=== PATIENT | female | born 1975 ===

== ENCOUNTER 2016-12-02 09:59 | Inpatient (IN) | payer BC ==
[2016-12-02] VITALS (14 sets, daily range): BP systolic 110–137; BP diastolic 69–80
[~2016-12-02] VITALS: Ht 167.6 cm; Wt 72.6 kg
[~2016-12-02 09:59] MED LIST: AMBIEN10 M1 ORAL; DIVALPROEX SOD250 M1 PO; LEXAPRO20 MG ORAL; NORCO 10-325 T1 EACH ORAL
[2016-12-02] MEDS ORDERED: LR 1000ml 1,000 ML IVLG SCH (12:12)
[2016-12-02] MEDS ORDERED: Atropine Inj 1mg/10ml Syr IV PRN (12:15)
[2016-12-02] MEDS ORDERED: Norco 5mg/325mg tab ORAL PRN ×3 (12:15→20:30)
[2016-12-02] MEDS ORDERED: Ketorolac 30mg Inj IV PRN (12:15)
[2016-12-02] MEDS ORDERED: Oxycodone/Acetaminophen 5-325 ORAL PRN (12:15)
[2016-12-02] MEDS ORDERED: Ketorolac 60mg Inj IV PRN (12:15)
[2016-12-02] MEDS ORDERED: Metoclopramide 10mg/2ml Inj IVP PRN (12:15)
[2016-12-02] MEDS ORDERED: DiphenhydrAMINE 50mg/ml Inj IVP PRN (12:15)
[2016-12-02] MEDS ORDERED: Norco 7.5mg/325mg tab ORAL PRN ×3 (12:15→20:30)
[2016-12-02] MEDS ORDERED: Hydromorphone 0.5mg/0.5ml inj IVP PRN ×2 (12:15→20:45)
[2016-12-02] MEDS ORDERED: fentaNYL 100 mcg/2 mL IV PRN ×2 (12:15→18:15)
[2016-12-02] MEDS ORDERED: LORazepam Inj 2mg/ml 1ml IV PRN (12:15)
--- NOTE | 2016-12-02 12:18 | Anethesia Preoperative Eval ---
Anesthesia Pre-op PMH/ROS General Date of Evaluation: Dec 02, 2016 Time of Evaluation: 12:56 Anesthesiologist: Justina ASA Score: ASA 2 Mallampati Score Class I : Soft palate, uvula, fauces, pillars visible Class II: Soft palate, uvula, fauces visible Class III: Soft palate, base of uvula visible Class IV: Only hard plate visible Mallampati Classification: Class II Surgeon: Gracy Diagnosis: Neck Pain Surgical Procedure: ACDF C5-6, C6-7 Anesthesia History: none Family History: no anesthesia problems Allergies: Coded Allergies: No Known Allergies (Unverified , 12/01/16) Medications: see eMAR Past Medical History Neurologic/Psychiatric: Reports: other - Migranes Musculoskeletal/Integumentary: Reports: RA PSxH Narrative: NEREYDAElvia Knee SX Anesthesia Pre-op Phys. Exam Physician Exam Last Vital Signs Date Time Temp Pulse Resp B/P Pulse Ox O2 Delivery O2 Flow Rate FiO2 12/02/16 11:07 97.7 78 18 115/74 99 Room Air Constitutional: NAD Neurologic: CN 2-12 intact Cardiovascular: RRR Respiratory: CTA Gastrointestinal: S/NT/ND Airway Exam Mallampati Score: Class II MO: full ROM: limited Teeth: intact Anesthesia Pre-op A/P Risk Assessment & Plan Assessment: ASA 2 Plan: GA, BIS, Glidescope Status Change Before Surgery: No Pre-Antibiotics Dru Grams Ancef IV Given Within 1 Hr of Incision: Yes Time Given: 13:46 Stephan Horn MD Dec 02, 2016 12:18
--- NOTE | 2016-12-02 12:19 | Immediate Post-Op Evaluation ---
Immediate Post-Op Evalulation Immediate Post-Op Evalulation Procedure: ACDF C5-6 Date of Evaluation: Dec 02, 2016 Time of Evaluation: 17:24 IV Fluids: 1000 LR Blood Products: 0 Estimated Blood Loss: 50 Urinary Output: 150 Blood Pressure Systolic: 127 Blood Pressure Diastolic: 79 Pulse Rate: 92 Respiratory Rate: 16 O2 Sat by Pulse Oximetry: 100 Temperature (Fahrenheit): 98.4 Pain Score (1-10): 3 Nausea: No Vomiting: No Complications Stable Patient Status: awake, reacts, patent, extubated, none Hydration Status: adequate Dru Grams Ancef IV Given Within 1 Hr of Incision: Yes Stephan Horn MD Dec 02, 2016 12:19
--- NOTE | 2016-12-02 12:19 | 48 Hour Post Anesthesia Eval ---
Post Anesthesia Evaluation Procedure: ACDF C5-6 Date of Evaluation: Dec 02, 2016 Time of Evaluation: 19:36 Blood Pressure Systolic: 131 0: 78 Pulse Rate: 87 Respiratory Rate: 18 Temperature (Fahrenheit): 98.6 O2 Sat by Pulse Oximetry: 100 Airway: patent Nausea: No Vomiting: No Pain Intensity: 2 Hydration Status: adequate Cardiopulmonary Status: Stable Mental Status/LOC: patient returned to baseline Follow-up Care/Observations: 0 Post-Anesthesia Complications: 0 Follow-up care needed: N/A Stephan Horn MD Dec 02, 2016 12:19
[2016-12-02] MEDS ORDERED: Surgicel 4in x 8in TOPIC ONE (12:23)
[2016-12-02] MEDS ORDERED: Thrombin 5000 units TOPIC ONE (12:23)
[2016-12-02] MEDS ORDERED: Bupivacaine w/Epi 0.5% 30ml Vial INJ ONE (12:23)
[2016-12-02] MEDS ORDERED: Bacitracin 50000 Units Vial ONE (12:24)
[2016-12-02] MEDS ORDERED: Thrombin 5000 units spray kit TOPIC ONE (12:24)
--- NOTE | 2016-12-02 12:45 | Pre-Procedure Note/Attestation ---
Pre-Procedure Note/Attestation Complete Prior to Procedure Planned Procedure: not applicable Procedure Narrative: C5-6 and possible C6-7 ACDF Indications for Procedure Pre-Operative Diagnosis: Disc hernia and neck pain. Please see H+P Attestation I attest that I discussed the nature of the procedure; its benefits; risks and complications; and alternatives (and the risks and benefits of such alternatives ), prior to the procedure, with the patient (or the patient's legal lifeline representatives). I attest that, if there was a reasonable possibility of needing a blood transfusion, the patient (or the patient's legal lifeline representatives) was given the [facility] standardized written summary, pursuant to the [place] Blood Safety Act ([place] Health and Safety Code # 1645, as amended). I attest that I re-evaluated the patient just prior to the surgery and that there has been no change in the patient's H&P, except as documented below: KYUNG MAR Dec 02, 2016 12:44
[2016-12-02] MEDS ORDERED: Lidocaine 1% Plain 30 ml INJ ONE (13:20)
[2016-12-02] MEDS ORDERED: fentaNYL 250mcg/5ml ONE (13:20)
[2016-12-02] MEDS ORDERED: LR 1000ml ONE (13:20)
[2016-12-02] MEDS ORDERED: Glycopyrrolate 0.2mg/ml 1ml Vial ONE (13:20)
[2016-12-02] MEDS ORDERED: Dexamethasone 4mg/ml vial ONE (13:20)
[2016-12-02] MEDS ORDERED: Sterile Water Irrig 1000ml IRRIG ONE (13:20)
[2016-12-02] MEDS ORDERED: Nimbex 2mg/ml Inj 10ML IVP ONE (13:20)
[2016-12-02] MEDS ORDERED: Propofol 10mg/ml 20ml IV ONE (13:20)
[2016-12-02] MEDS ORDERED: NS Irrig 1000ml ONE (13:20)
[2016-12-02] MEDS ORDERED: fentaNYL 100 mcg/2 mL IV ONE (13:20)
[2016-12-02] MEDS ORDERED: Neostigmine 1mg/ml 10ml Inj ONE (13:20)
[2016-12-02] MEDS ORDERED: Acetaminophen (Non formulary) 100 ML IV ONE (13:30)
--- NOTE | 2016-12-02 16:59 | Brief Operative Note ---
Immediate Post Operative Note Operative Note Chief Complaint: neck pain and radiculopathy Pre-op Diagnosis: Disc hernia and neck pain. Please see H+P Procedure: C5-6 ACDF Post-op Diagnosis: same Post-op Diagnosis: same as pre-op Findings: consistent w/pre-op dx studies Surgeon: Gracy Fly Tier: [place] Anesthesiologist: Justina Anesthesia: general Specimen: yes Complications: none Condition: stable Estimated Blood Loss: minimal Drains: none Implant(s) used?: Yes KYUNG MAR Dec 02, 2016 16:59
[2016-12-02] MEDS ORDERED: NS w/KCl 20mEq 1,000 ML IV SCH (17:14)
[2016-12-02] MEDS: Meperidine 25mg/0.5ml Inj IV PRN ×2 (17:20→17:54)
[2016-12-02] MEDS ORDERED: Docusate 100mg cap ORAL SCH ×2 (18:00→20:30)
[2016-12-02] MEDS: Hydromorphone 0.5mg/0.5ml inj IVP PRN ×2 (18:20→18:35)
[2016-12-02] MEDS: Midazolam 2mg/2ml Inj IVP PRN ×2 (18:25→18:41)
[2016-12-02] MEDS ORDERED: Norco 10mg/325mg tab ORAL PRN ×2 (20:45→22:30)
[2016-12-02] MEDS ORDERED: LORazepam 0.5mg tab ORAL PRN (20:45)
[2016-12-02] MEDS ORDERED: Zolpidem 5mg tab ORAL PRN (21:00)
[2016-12-02] MEDS: ceFAZolin sod 1 GM in D5W 55 ML IV SCH (21:17)
[2016-12-02] MEDS: NS w/KCl 20mEq 1,000 ML IV SCH (21:17)
[2016-12-02] MEDS: Depakote ER 250mg tab ORAL SCH (21:17)
[2016-12-02] MEDS ORDERED: ceFAZolin sod 1 GM in D5W 55 ML IV SCH (22:00)
[2016-12-02] MEDS ORDERED: Chloraseptic Spray 20mL Bottle ORAL PRN (22:30)
[2016-12-02] MEDS ORDERED: HYDROmorphone 1mg/ml Carpuject SUBQ PRN (22:30)
--- NOTE | 2016-12-02 23:30 | Consultation ---
DATE OF CONSULTATION: 12/02/2016 CONSULTING PHYSICIAN: Gray Navarrete M.D. REQUESTING PHYSICIAN: Aliyah Dubose M.D. REASON FOR CONSULTATION: Acute pain consult. HISTORY OF PRESENT ILLNESS: Thank you kindly for consulting me to evaluate and render an opinion as to how to proceed in the management of the patient's acute postoperative cervical spine pain, status post cervical spine fusion surgery and instrumentation. On your request, I saw the patient for acute pain consultation and the patient complained of severe pain after her neck fusion surgery today. The patient has been using [place] chronically for her chronic neck pain and stated that her pain control was inadequate after her surgery. I saw the patient at the bedside, where I performed a detailed history and physical examination. I discussed the case with yourself, Dr. Dubose along with the hospital pharmacist and the nurse to devise the following analgesic plan. PAST MEDICAL HISTORY: 1. Acute postoperative cervical spine pain, status post cervical spine fusion surgery by Dr. Aliyah Dubose in November 2016. 2. History of lumbar spine surgery. 3. Anxiety/depression. PAST SURGICAL HISTORY: 1. Previous lumbar spine fusion surgery. 2. Bilateral knee arthroscopies. 3. Hysterectomy. MEDICATIONS: Medications at home, 1. . 2. Lexapro. 3. Ambien. 4. [place] 10/325 mg one to two tablets three times a day. ALLERGIES: No known drug allergies. FAMILY HISTORY: Negative and noncontributory. SOCIAL HISTORY: The patient lives at home with her near to [place] [place] with her two adult children. REVIEW OF SYSTEMS: Per attending physician. PHYSICAL EXAMINATION: VITAL SIGNS: Age 41. Height 167 centimeters. Weight 156 pounds. Body mass index 26. Pain level 9/10 on the visual analog pain scale. Afebrile, pulse 90, respirations 18, blood pressure 117/76, and oxygen saturation 96% on supplemental oxygen. HEENT: [place] collar in place. NECK: Dressing appears clean and dry. Significant pain with any range of motion. She appears . LUNGS: She is breathing, phonating, and swallowing within normal limits. CHEST: Clear to auscultation. HEART: Regular rate and rhythm. ABDOMEN: Soft. EXTREMITIES: Moving all extremities x4. DIAGNOSTIC TESTING: A 12-lead EKG shows normal sinus rhythm. LABORATORY STUDIES: Lab on 11/22/2016 showed white count of 5, hematocrit 40, and platelets 211,000. INR is 1.1 and PT 30. Sodium is 137, potassium 4.3, chloride 102, bicarbonate 33, glucose 88, BUN 15, creatinine 0.5, calcium 9.4, and phosphorus 3.2. Total protein is 6.6 and albumin 4.2. ALT is 80, AST 19, and alkaline phosphatase 58. Total bilirubin is 0.2. . Hepatitis A and B, and C, and HIV are all negative. TSH is normal. IMPRESSION: . TREATMENT AND RECOMMENDATIONS: To help with this patient's pain control, I have devised the following analgesic plan. This patient has had previous spinal fusion surgery. She tolerated [place] 10/325 mg up to two tablets at a time up to three times per day. She has not been using muscle relaxant lately, but she has responded well to Soma. I have asked pharmacy to bolus her with 1.5 mg of subcutaneous Dilaudid now and which I will continue every three hours. Another dose of intravenous Dilaudid has been inadequate. I also would recommend titrating [place] 10/325 mg two tablets orally every four hours p.r.n. for mild pain and I have added a dose of Soma 350 mg orally every eight hours p.r.n. We will restart the patient on her mood stabilizing agent including valproic acid and Lexapro. I have also added p.r.n. dose of oral Ativan 0.5 mg q.6 h. for anxiety. The patient does have chronic insomnia. I have restarted her Ambien on a p.r.n. basis. I will start her on Protonix for gastrointestinal ulcer prophylaxis. I have ordered Mylanta 30 mL q.6 h. p.r.n. for any gastroesophageal reflux disease symptom exacerbation and for giving any itching symptoms, I have ordered Benadryl 25 mg orally q.6 h. I have also added antiemetic Zofran as a rescue antinausea agent. I have ordered Chloraseptic spray bottle at the bedside to help with topical sore throat complaints and I have left a prescription for outpatient usage for [place] and Soma, quantity of 60 and 25 respectively for outpatient usage. Gray Navarrete M.D. DR: Selma JOB#: [id number] CC:
[2016-12-03 00:50] VITALS: BP 116/78
--- NOTE | 2016-12-03 02:30 | Operative Note - Dictated ---
DATE OF OPERATION: 12/02/2016 PREOPERATIVE DIAGNOSES: 1. C5-C6 disc degeneration. 2. Neck pain. 3. T5-T6 foraminal stenosis, left greater than right. 4. Foraminotomy. POSTOPERATIVE DIAGNOSES: 1. C5-C6 disc degeneration. 2. Neck pain. 3. T5-T6 foraminal stenosis, left greater than right. 4. Foraminotomy. PROCEDURES: 1. C5-C6 decompression central. 2. C5-C6 left foraminotomy. 3. C5-C6 right foraminotomy. 4. C6 partial corpectomy. 5. C5-C6 diskectomy for purposes other than fusion. 6. C5-C6 interbody fusion. 7. C5-C6 instrumentation. 8. C5-C6 placement of PEEK cage from [employer], measures 5 x 17 x 14 mm. 9. Use of intraoperative Osteocel allograft. 10. Neurolysis of right C6. 11. Neurolysis of left C6. 12. SSEP, upper and lower extremities for two hours. 13. Motor-evoked potential for upper and lower extremities for two hours. 14. Use of intraoperative fluoroscopy for two hours. 15. Interpretation of x-ray of cervical spine x15. 16. Interpretation of MRI of the cervical spine intraoperatively. 17. Use of intraoperative microscopy. 18. Microscopic plastic closure of wound, 3 cm in length. SURGEON: Aliyah Dubose M.D. MANAGER PLAN SURGEON: Dr. Dow. ANESTHESIOLOGIST: Stephan Horn M.D. COMPLICATIONS: None. CONDITION: Transfer to recovery room under stable condition and moving all her extremities with good strength. I immediately discussed the case with the family, mainly her waiting in the waiting area. INDICATION FOR PROCEDURE: The patient is a 41-year-old female with severe neck pain that has been not responsive to conservative treatment. The pros and cons of surgery were explained to this patient after her surgery. She was also offered the discogram, which she declined and wanted to proceed with surgery and as such we decided to proceed with C5-C6, which appeared to be the most effective one understanding that other disc levels may be also causing her problem and may require further treatment and/or surgery at the same time or in the future. The risk of procedure, which include, but not limited to infection, bleeding, stroke, , damage to surrounding structures, need for future operative procedures, no improvement of symptoms, worsening of symptoms, other unfortunate risks including risk of CSF leak, damage to recurrent laryngeal nerve, risk of pseudoarthrosis and adjacent level disease have been explained to the patient extensively. She understood and signed the consent form and proceeded to surgery. DESCRIPTION OF PROCEDURE: After informed consent was obtained, the patient was taken to the operative room where she was placed under general anesthesia and intubation. The area of interest was shaved, prepped, and draped. We placed a marker at the C5-C6 anterior neck and confirmed the position using fluoroscopy and injected the planned incision using Marcaine with epinephrine 0.5% 4 mL. The incision was made using a #10 blade knife and was taken through platysma, which was divided sharply with sharp dissection through the deep cervical fascia, led to the prevertebral space. Longus colli was elevated after we confirmed the position using a bent needle, which was placed in the C5-C6 interspace and we confirmed the position. At this point, the SEEP and motor-evoked potentials were obtained again since the baseline prior to making the incision demonstrated good baseline. This remained unchanged throughout the whole positioning as well as throughout the whole case. At this point, we brought in the microscope and placed the [place] retractors in C5-C6. Using combination of curette and Kerr[place], a high-speed drill was used to perform partial corpectomy at C6 and posterior osteophytes resection as well as diskectomy and also preparation of the anterior space. Kerrison #1 and #2 were used to go into the foramen, especially on the left side and decompress the nerve roots extensively. The nerve hook was used to make sure that the foramens are open. In addition, the posterior longitudinal ligament was elevated and removed. We dissected over the nerves and made sure that all the adhesions were lysed. There is no lysis with microdecompression of the nerves at the take off and into the foramen. At this point, hemostasis was obtained. The endplates were grasped and then we used a template and subsequently the cage, which was packed with Osteocel into the interspace from [employer]. This was measured 5 x 14 x 17 mm in size. This was placed under fluoroscopy and screws were placed after we put all in and obtained x-rays. A 14 mm screw superiorly and 13 mm inferiorly were placed. Hemostasis was obtained. The patient tolerated the procedure well. The platysma was closed using 2-0 Vicryl sutures in running fashion and subsequently microscopic plastic closure of wound using 3-0 Vicryl suture in interrupted fashion. The patient tolerated the procedure well and was transferred to recovery room after extubation, moving all the extremities. I immediately discussed the case with family, mainly her . Aliyah Dubose M.D. DR: PARVEEN JOB#: [id number] CC:
[2016-12-03 04:00] VITALS: BP 118/78
[2016-12-03] MEDS: ceFAZolin sod 1 GM in D5W 55 ML IV SCH ×2 (05:37→14:22)
[2016-12-03 07:50] VITALS: BP 105/66
[2016-12-03] MEDS ORDERED: Morphine Sulfate 4mg/ml Inj IM PRN (08:50)
[2016-12-03] MEDS: Depakote ER 250mg tab ORAL SCH (09:07)
[2016-12-03] MEDS ORDERED: LORazepam 0.5mg tab ORAL PRN (09:30)
[2016-12-03] MEDS: NS w/KCl 20mEq 1,000 ML IV SCH (10:20)
[2016-12-03 11:53] VITALS: BP 121/84
[2016-12-03] MEDS ORDERED: Morphine Sulfate 4mg/ml Inj IVP PRN (14:50)
--- NOTE | 2016-12-03 16:00 | Progress Note ---
DATE: 12/03/2016 Acute pain management physician progress note Medication administration record reviewed. MEDICATIONS: Include Mylanta, Soma, Benadryl, Depakote, Colace, Lexapro, Ferdinand, Dilaudid, Ativan, Demerol, morphine, Zofran, Protonix, Chloraseptic spray, Ambien. LABORATORY STUDIES: No interval laboratory studies PHYSICAL EXAMINATION: VITAL SIGNS: Afebrile, pulse 80, respirations 20, blood pressure 105/66, oxygen saturation 98% on supplemental oxygen. I saw the patient at the bedside with the charge nurse, RNStephanie and the floor nurse RN Brunilda. I discussed the case with the surgeon, Dr. Dubose. The patient has been advancing her liquids and is breathing comfortably. The patient has had extreme anxiety which is consistent with her preoperative psychiatric illnesses. She chronically uses Lexapro and valproic acid, which have been continued. I have been dosing the patient with oral p.o. Ativan to help with her active crying spells. The patient was complaining that she felt her tongue was swollen. I examined her tongue at the bedside and seen within normal limits to me. The patient has been drinking liquids and appears non-toxic. She is breathing comfortably. It seems that the patient's anxiety is exacerbating her pain complaints. The patient did tolerate both Ferdinand and Dilaudid injections. She stated that she was having itching symptoms and requested morphine instead of Dilaudid. I did add as needed morphine trial. However I expect she will find Dilaudid more affective. She has tolerated two tablet of Ferdinand at a time without trouble and a prescription for Ferdinand and Soma for outpatient usage. I have asked nurse to remove the Farah catheter, Hep-Lock IV, and discontinue nasal cannula oxygen in order to encourage her movement in and out of bed to help expedite her discharge. The patient patient's can arrive late mid afternoon to take her home and I agree with Dr. Dubose for discharge trial home at this time. I did ask the nurse to leave Chloraseptic spray bottle at the bedside for topical sore throat complaint. The patient has normal vital signs, is afebrile, and is breathing comfortably. Gray Navarrete M.D. DR: Elieser JOB#: [id number] CC:
[2016-12-03 16:10] VITALS: BP 115/81
[2016-12-03] MEDS ORDERED: Tubing IV Secondary IV ONE ×2 (16:29)
--- NOTE | 2016-12-03 22:00 | Discharge Summary ---
DATE OF ADMISSION: 12/02/2016 DATE OF DISCHARGE: 12/03/2016 ADMITTING DIAGNOSIS: Cervical spine pain. DISCHARGE DIAGNOSIS: Cervical spine pain status post cervical spine fusion surgery. ADMITTING PHYSICIAN/SURGEON: Aliyah Dubose M.D. CONSULTING PHYSICIAN: Gray Navarrete M.D, Pain Management. HOSPITAL COURSE: The patient was admitted to [facility] on 12/02/2016 for elective cervical spine fusion surgery. The patient underwent cervical spine fusion surgery with Dr. Dubose without any complications. She left the operating room and was transferred to the recovery room. The patient did well in recovery room and was transferred up to the orthopedic floor. Serial vital signs. We will monitor the patient and advance her diet and ambulation. Pain was adequately controlled and the patient's vital signs were stable. She was discharged home to her with a prescription for [place] and Soma. There were no complications. Gray Navarrete M.D. DR: JULIET JOB#: [id number] CC:
--- NOTE | 2016-12-05 08:39 | Diagnostic Imaging Report ---
Indication: Cervical pain Technique: Intraoperative imaging of the cervical spine with for fluoroscopically captured images. Comparison: None Findings: Limited intraoperative imaging demonstrates anterior cervical screws of the C5/C6 level. Support tubes are present. Impression: Intraoperative imaging of the cervical spine.
== END 2016-12-03 16:30 | disposition home or self-care (01) | DRG 473 ==
LOC: SDSOVERFLO 10:22 → UNDOADMIN 10:22 → 3E 20:29
PROC: 01N10ZZ Release Cervical Nerve, Open Approach (ICD-10-PCS; principal; 2016-12-02 12:30)
PROC: 0RB30ZZ Excision of Cervical Vertebral Disc, Open Approach (ICD-10-PCS; principal; 2016-12-02 12:30)
PROC: 0RG10A0 Fusion of Cervical Vertebral Joint with Interbody Fusion Device, Anterior Approach, Anterior Column, Open Approach (ICD-10-PCS; principal; 2016-12-02 12:30)
DX: M50.322 Other cervical disc degeneration at C5-C6 level (principal); M48.02 Spinal stenosis, cervical region; Z98.1 Arthrodesis status; F41.8 Other specified anxiety disorders
CPT/HCPCS: 36415; 72040; 76001; 86850; 86900; 86901; 87081; 94003; 94150; J2180; J2250; J2405; J2710